=== PATIENT | female | born 1955 | race African-American/Black ===

== ENCOUNTER 2020-12-11 13:53 | Outpatient (CLI) | payer BC ==
[2020-12-11 15:36] LABS: #Eosinphils 0.1 10x3/uL (0.0-0.5); #Monocytes 0.4 10x3/uL (0.0-1.1); #Neutrophils 4.7 10x3/uL (1.5-8.4); %Basophils 0.5 % (0.0-2.0); %Eosinophils 1.2 % (0.0-6.0); %Lymphocytes 36.7 % (18.0-47.0); %Monocytes 4.8 % (0.0-10.0); %Neutrophils 56.6 % (40.0-75.0); Hemoglobin 13.1 g/dL (12.0-15.5); Mean Corpuscular HGB CONC 31.6 g/dL (32.0-36.0); Mean Corpuscular Hemoglobin 26.5 pg (27.0-33.0); Mean Platelet Volume 11.1 fl (7.4-10.4); Platelet Count 239 10x3/uL (150-450); RBC Distribution Width 11.8 % (11.5-14.5); Red Blood Cell (RBC) Count 4.94 10x6/uL (3.90-5.03); White Blood Cell (WBC) Count 8.3 10x3/uL (3.5-10.5)
[2020-12-11 15:51] LABS: ALT (SGPT) 35 U/L (8-55); AST (SGOT) 24 U/L (5-34); Albumin 4.1 g/dL (3.4-4.8); Alkaline Phosphatase 72 U/L (40-110); Anion Gap 13 mmol/L (10-20); BUN (Urea Nitrogen) 13 mg/dL (9.8-20.1); Bilirubin, Total 0.4 mg/dL (0.2-1.2); Calc. Creatinine Clearance 0 mL/min (70-130); Calcium 10.1 mg/dL (7.8-10.44); Carbon Dioxide 29 mmol/L (23-31); Chloride 103 mmol/L (98-107); Globulin 3.2 g/dL (2.4-3.5); Glucose 249 mg/dL (80-115); Potassium 4.2 mmol/L (3.5-5.1); Protein, Total 7.3 g/dL (5.8-8.1); Sodium 141 mmol/L (136-145)
[2020-12-12 12:25] LABS: SARS-CoV-2 PCR by NAA Not Detected (NotDetected)
== END 2020-12-11 13:54 | disposition home or self-care (01) ==
LOC: LABBT 13:53
PROVIDERS: ATTEND Internal Medicine Cardiovascular Disease
DX: Z01.812 Encounter for preprocedural laboratory examination (principal); I42.0 Dilated cardiomyopathy; Z20.822 Contact with and (suspected) exposure to COVID-19
CPT/HCPCS: 80053; 85025; U0003; U0005

== ENCOUNTER 2020-12-16 05:49 | Day surgery (SDC) | payer BC ==
[2020-12-13 10:57] VITALS: BMI 24.3
[2020-12-16 07:33] LABS: Cardiac Risk 3.5 (Less than 4.5)
[2020-12-16] MEDS ORDERED: Midazolam HCl 2 mg/2 ml Vial ONE (08:24)
[2020-12-16] MEDS ORDERED: Heparin 10,000 UNITS/ 10 ML VIAL ONE (08:25)
[2020-12-16] MEDS ORDERED: Fentanyl 100 MCG/2 ML VIAL ONE (08:25)
[2020-12-16] MEDS ORDERED: Verapamil 5 MG/2 ML VIAL ONE (08:25)
[2020-12-16] MEDS ORDERED: Nitroglycerin 100MG/250ML BOT 250 ML ONE (08:26)
[2020-12-16] MEDS ORDERED: Lidocaine 1% (PF) 30 ML VIAL ONE (08:26)
[2020-12-16] MEDS ORDERED: Iopamidol 370 76% 100 ML VIAL ONE (08:46)
== END 2020-12-16 12:34 | disposition home or self-care (01) ==
LOC: CCL 05:49
PROVIDERS: ATTEND Internal Medicine Cardiovascular Disease
PROC: B2111ZZ Fluoroscopy of Multiple Coronary Arteries using Low Osmolar Contrast (ICD-10-PCS; principal; 2020-12-16)
PROC: 4A023N8 Measurement of Cardiac Sampling and Pressure, Bilateral, Percutaneous Approach (ICD-10-PCS; principal; 2020-12-16)
DX: I42.8 Other cardiomyopathies (principal); I11.0 Hypertensive heart disease with heart failure; I50.9 Heart failure, unspecified; K21.9 Gastro-esophageal reflux disease without esophagitis; E10.9 Type 1 diabetes mellitus without complications; E78.5 Hyperlipidemia, unspecified; Z79.84 Long term (current) use of oral hypoglycemic drugs; Z79.899 Other long term (current) drug therapy
CPT/HCPCS: 36415; 80061; 93458; 99152; J1644; J2001; J2250; J3010; Q9967